=== PATIENT | male | born 1995 | race African-American/Black ===

== ENCOUNTER 2017-04-02 12:55 | Emergency (ER) | payer OTHER ==
[~2017-04-02] VITALS: Ht 185.4 cm; Wt 105.0 kg
[2017-04-02] MEDS ORDERED: PHENYTOIN SODIUM 1,000 MG in SODIUM CHLORIDE 0.9% 100 ML IV ONE (14:15)
[2017-04-02 16:33] VITALS: BP 118/62
== END 2017-04-02 16:38 | disposition home or self-care (01) ==
LOC: ER 13:26
DX: G40.909 Epilepsy, unspecified, not intractable, without status epilepticus (principal)
CPT/HCPCS: 36415; 80185; 96365; 96366; 99285; J1165; J7040; Z7610; J7050

== ENCOUNTER 2017-05-18 10:27 | Inpatient (IN) | payer MEDICAID, OTHER ==
[~2017-05-18] VITALS: Ht 193 cm; Wt 113.4 kg
[2017-05-18] MEDS ORDERED: SODIUM CHLORIDE 0.9% 1,000 ML IV ONE (10:43)
[2017-05-18 11:12] LABS: BASOPHILS % 0.6 % (0.0-2.0); EOSINOPHILS % 0.3 % (0.0-5.0); HEMATOCRIT. 37.7 % (42.0-52.0); HEMOGLOBIN. 12.5 g/dL (14.0-18.0); LYMPHOCYTES % 24.1 % (20.0-50.0); MEAN CORPUSCULAR VOLUME 78.1 fL (80.0-94.0); MEAN PLATELET VOLUME 7.9 fl (7.4-10.4); MONOCYTES % 7.5 % (2.0-8.0); NEUTROPHILS % 67.5 % (40.0-76.0); PLATELET 208 x1000/uL (130-400); RED BLOOD CELL COUNT 4.82 mill/uL (4.7-6.1); RED CELL DISTRIBUTION WIDTH 16.5 % (11.6-14.6)
[2017-05-18 11:20] LABS: CARBON DIOXIDE 23 mEq/L (21-32); CHLORIDE 100 mEq/L (98-107); ETHANOL BLOOD < 10 mg/dL
[2017-05-18 11:30] LABS: CREATINE KINASE 333 IU/L (39-308)
[2017-05-18 11:31] LABS: CARBAMAZEPINE < 0.5 ug/mL (4-12); PHENOBARBITAL < 2.1 ug/mL (15.0-40.0)
[2017-05-18] MEDS ORDERED: PHENYTOIN SODIUM 1,000 MG in SODIUM CHLORIDE 0.9% 100 ML IV ONE (11:45)
[2017-05-18 11:52] LABS: INR 1.1; PARTIAL THROMBOPLASTIN TIME 28.9 sec (23.4-31.0); PROTHROMBIN TIME 11.1 sec (9.4-11.6)
[2017-05-18 12:11] LABS: *AMPHETAMINES SCREEN URINE NEGATIVE (NEGATIVE); *BARBITURATES SCREEN URINE NEGATIVE (NEGATIVE); *BENZODIAZEPINES SCREEN URINE NEGATIVE (NEGATIVE); *COCAINE SCREEN URINE NEGATIVE (NEGATIVE); CANNABINOID URINE SCREEN PRESUMTIVE POSITIVE (NEGATIVE); METHADONE URINE SCREEN NEGATIVE (NEGATIVE); OPIATES URINE SCREEN NEGATIVE (NEGATIVE); PHENCYCLIDINE URINE SCREEN NEGATIVE (NEGATIVE)
[2017-05-18] MEDS ORDERED: LORAZEPAM 2MG/ML CPJ IV ONE (12:30)
[2017-05-18] MEDS ORDERED: LORAZEPAM 2MG/ML CPJ ONE (12:37)
[2017-05-18 15:10] VITALS: BP 111/46
[2017-05-18 15:22] VITALS: BP 111/46
[2017-05-18] MEDS ORDERED: HYDROCODONE/ACETAMINOPHEN 5/325MG TABLET PO PRN (16:15)
[2017-05-18] MEDS ORDERED: ACETAMINOPHEN 325MG TABLET PO PRN (16:15)
[2017-05-18 20:00] VITALS: BP 114/46
[2017-05-18] MEDS: LEVETIRACETAM 500 MG in SODIUM CHLORIDE 0.9% 100 ML IV SCH (20:51)
[2017-05-19] VITALS: BP 101/44
[2017-05-19 08:00] VITALS: BP 102/52
[2017-05-19] MEDS: LEVETIRACETAM 500 MG in SODIUM CHLORIDE 0.9% 100 ML IV SCH ×2 (09:15→20:27)
[2017-05-19 12:00] VITALS: BP 107/47
[2017-05-19 13:16] LABS: BASOPHILS % 0.3 % (0.0-2.0); EOSINOPHILS % 0.5 % (0.0-5.0); HEMATOCRIT. 36.9 % (42.0-52.0); MEAN CORPUSCULAR HEMOGLOBIN 25.2 pg (28.0-32.0); MEAN CORPUSCULAR VOLUME 77.2 fL (80.0-94.0); MEAN PLATELET VOLUME 8.9 fl (7.4-10.4); MONOCYTES % 8.6 % (2.0-8.0); NEUTROPHILS % 73.6 % (40.0-76.0); PLATELET 182 x1000/uL (130-400); RED BLOOD CELL COUNT 4.78 mill/uL (4.7-6.1); RED CELL DISTRIBUTION WIDTH 16.3 % (11.6-14.6)
[2017-05-19 13:34] LABS: CARBON DIOXIDE 24 mEq/L (21-32); CHLORIDE 102 mEq/L (98-107); HDL CHOLESTEROL 46 mg/dL (40-59)
[2017-05-19 13:36] LABS: LDL CHOLESTEROL 91 mg/dL (5-100)
[2017-05-19 16:00] VITALS: BP 117/50
[2017-05-19 20:00] VITALS: BP 105/49
[2017-05-20] VITALS: BP 97/45
[2017-05-20 04:00] VITALS: BP 115/65
[2017-05-20 07:37] VITALS: BP 108/53
[2017-05-20] MEDS ORDERED: LEVETIRACETAM 500MG PREMIX 100 ML IV SCH (09:00)
[2017-05-20 11:57] VITALS: BP 120/68
[2017-05-20] MEDS ORDERED: KEPP500 PO (13:18)
[2017-05-20 14:02] VITALS: BP 112/78
== END 2017-05-20 14:20 | disposition home or self-care (01) | DRG 53 ==
LOC: ER 10:27 → 5WST 11:30 → EDBEDREQ 11:32 → ENRESERV 12:50
PROVIDERS: ADMIT Internal Medicine; ATTEND Internal Medicine
DX: G40.409 Other generalized epilepsy and epileptic syndromes, not intractable, without status epilepticus (principal); E87.1 Hypo-osmolality and hyponatremia; D72.829 Elevated white blood cell count, unspecified; F12.10 Cannabis abuse, uncomplicated; F17.210 Nicotine dependence, cigarettes, uncomplicated; H53.8 Other visual disturbances; Z91.19 Patient's noncompliance with other medical treatment and regimen
CPT/HCPCS: 36415; 70450; 70551; 80048; 80053; 80061; 80156; 80165; 80184; 80185; 80305; 82550; 82962; 84443; 85025; 85610; 85730; 87040; 92610; 96361; 96365; 96375; 99291; G0482; J1165; J1953; J2060; J7030; J7050; J7060

== ENCOUNTER 2017-11-01 17:02 | Emergency (ER) | payer MEDICAID ==
[~2017-11-01] VITALS: Ht 177.8 cm; Wt 86.0 kg
[~2017-11-01 17:02] MED LIST: KEPP500 PO
[2017-11-01] MEDS ORDERED: SODIUM CHLORIDE 0.9% 1,000 ML IV ONE ×2 (17:09→21:17)
[2017-11-01] MEDS ORDERED: LEVETIRACETAM 500MG TABLET PO ONE (17:15)
[2017-11-01] MEDS ORDERED: LEVETIRACETAM 500MG PREMIX 100 ML IV ONE (17:15)
[2017-11-01 18:00] LABS: BASOPHILS % 0.8 % (0.0-2.0); EOSINOPHILS % 0.2 % (0.0-5.0); HEMATOCRIT. 42.2 % (42.0-52.0); HEMOGLOBIN. 13.7 g/dL (14.0-18.0); LYMPHOCYTES % 26.7 % (20.0-50.0); MEAN CORPUSCULAR HEMOGLOBIN 25.6 pg (28.0-32.0); MEAN CORPUSCULAR VOLUME 78.7 fL (80.0-94.0); MEAN PLATELET VOLUME 8.9 fl (7.4-10.4); MONOCYTES % 5.7 % (2.0-8.0); NEUTROPHILS % 66.6 % (40.0-76.0); PLATELET 221 x1000/uL (130-400); RED BLOOD CELL COUNT 5.36 mill/uL (4.7-6.1); RED CELL DISTRIBUTION WIDTH 14.8 % (11.6-14.6)
[2017-11-01 18:10] LABS: PARTIAL THROMBOPLASTIN TIME 25.5 sec (23.4-31.0); PROTHROMBIN TIME 10.6 sec (9.4-11.6)
[2017-11-01 19:21] LABS: *AMPHETAMINES SCREEN URINE NEGATIVE (NEGATIVE); *BARBITURATES SCREEN URINE NEGATIVE (NEGATIVE); *BENZODIAZEPINES SCREEN URINE NEGATIVE (NEGATIVE)
[2017-11-01 19:22] LABS: *COCAINE SCREEN URINE NEGATIVE (NEGATIVE); CANNABINOID URINE SCREEN PRESUMTIVE POSITIVE (NEGATIVE); METHADONE URINE SCREEN NEGATIVE (NEGATIVE); OPIATES URINE SCREEN NEGATIVE (NEGATIVE); PHENCYCLIDINE URINE SCREEN NEGATIVE (NEGATIVE)
[2017-11-01 20:06] LABS: CHLORIDE 105 mEq/L (98-107)
[2017-11-01 20:08] LABS: ETHANOL BLOOD < 10 mg/dL
[2017-11-01 20:14] LABS: CARBAMAZEPINE < 0.5 ug/mL (4-12); PHENOBARBITAL < 2.1 ug/mL (15.0-40.0)
[2017-11-01] MEDS ORDERED: PHENYTOIN SODIUM 1,000 MG in SODIUM CHLORIDE 0.9% 100 ML IV ONE (21:00)
[2017-11-01 22:41] VITALS: BP 127/75
== END 2017-11-01 22:50 | disposition home or self-care (01) ==
LOC: ER 17:13
DX: R56.9 Unspecified convulsions (principal); R89.2 Abnormal level of other drugs, medicaments and biological substances in specimens from other organs, systems and tissues
CPT/HCPCS: 36415; 70450; 80048; 80156; 80184; 80185; 80305; 85025; 85610; 85730; 96365; 99285; G0482; J1165; J1953; J7030; Z7610; J7050

== ENCOUNTER 2018-08-06 07:38 | Emergency (ER) | payer MEDICAID ==
[~2018-08-06] VITALS: Ht 177.8 cm; Wt 85.0 kg
[2018-08-06] MEDS ORDERED: LEVETIRACETAM 1000MG/100ML 100 ML IV ONE (08:15)
[2018-08-06 09:03] LABS: BASOPHILS % 0.9 % (0.0-2.0); EOSINOPHILS % 7.2 % (0.0-5.0); HEMATOCRIT. 40.4 % (42.0-52.0); LYMPHOCYTES % 23.9 % (20.0-50.0); MEAN CORPUSCULAR HEMOGLOBIN 25.9 pg (28.0-32.0); MEAN CORPUSCULAR VOLUME 80.4 fL (80.0-94.0); MEAN PLATELET VOLUME 8.7 fl (7.4-10.4); PLATELET 191 x1000/uL (130-400); RED BLOOD CELL COUNT 5.03 mill/uL (4.7-6.1); RED CELL DISTRIBUTION WIDTH 15.4 % (11.6-14.6)
[2018-08-06 09:04] LABS: CHLORIDE 106 mEq/L (98-107)
[2018-08-06 09:12] LABS: ETHANOL BLOOD < 10 mg/dL
[2018-08-06 10:20] LABS: CLARITY URINE CLEAR (CLEAR); COLOR URINE YELLOW (YELLOW); KETONES URINE NEGATIVE (NEGATIVE); LEUKOCYTE ESTERASE URINE NEGATIVE (NEGATIVE); NITRITE URINE NEGATIVE (NEGATIVE); OCCULT BLOOD URINE NEGATIVE (NEGATIVE); PH URINE 6.5 (4.5-8.0); PROTEIN URINE 1+ (NEGATIVE); SPECIFIC GRAVITY URINE 1.018 (1.005-1.030); UROBILINOGEN URINE 0.2 E.U./dL (0.2-1.0)
[2018-08-06 11:00] VITALS: BP 130/74
[2018-08-06 11:09] LABS: *AMPHETAMINES SCREEN URINE NEGATIVE (NEGATIVE); *BARBITURATES SCREEN URINE NEGATIVE (NEGATIVE); *BENZODIAZEPINES SCREEN URINE NEGATIVE (NEGATIVE); *COCAINE SCREEN URINE NEGATIVE (NEGATIVE); METHADONE URINE SCREEN NEGATIVE (NEGATIVE); OPIATES URINE SCREEN NEGATIVE (NEGATIVE); PHENCYCLIDINE URINE SCREEN NEGATIVE (NEGATIVE)
[2018-08-06 11:11] LABS: CANNABINOID URINE SCREEN PRESUMTIVE POSITIVE (NEGATIVE)
== END 2018-08-06 11:15 | disposition home or self-care (01) ==
LOC: ER 07:38
DX: G40.909 Epilepsy, unspecified, not intractable, without status epilepticus (principal); S09.93XA Unspecified injury of face, initial encounter; Z91.14 Patient's other noncompliance with medication regimen; X58.XXXA Exposure to other specified factors, initial encounter; Y93.89 Activity, other specified; Y92.018 Other place in single-family (private) house as the place of occurrence of the external cause
CPT/HCPCS: 36415; 80053; 80305; 81003; 85025; 96365; 96366; 99283; G0482; J1953

== ENCOUNTER 2019-01-21 17:54 | Emergency (ER) | payer MEDICAID ==
[~2019-01-21] VITALS: Ht 182.9 cm; Wt 85.0 kg
[2019-01-21 17:58] VITALS: BP 113/67
== END 2019-01-21 19:30 | disposition left against medical advice (07) ==
LOC: ER 17:54
DX: Z53.21 Procedure and treatment not carried out due to patient leaving prior to being seen by health care provider (principal)